=== PATIENT | female | born 1935 | race Caucasian/White ===

== ENCOUNTER 2017-11-20 18:41 | Emergency (ER) ==
[2017-11-20 19:01] VITALS: BP 123/72; TEMP 98; BMI 25.2
--- NOTE | 2017-11-20 19:45 | CT ---
EXAM: CT scan of the head without contrast HISTORY: Fall TECHNIQUE: Helical imaging of the head was performed without contrast. 5 mm thin axial images and c oronal and sagittal images were provided for interpretation. FINDINGS: The lateral ventricles and cortical sulci are normal. Low density changes are seen within the supratentorial white matter. No acute hemorrhages are seen. There is no mass effect. There ar e no extraaxial collections. The basal cisterns are patent. The paranasal sinuses and mastoid air c ells are clear. The calvarium and extracranial soft tissues are normal. IMPRESSION: No acute intracranial abnormalities are seen. Chronic small vessel ischemic changes seen within the supratentorial white matter.
--- NOTE | 2017-11-20 19:50 | CT ---
EXAM: CT scan of the cervical spine without contrast HISTORY: Fall left ear a pain TECHNIQUE: Helical imaging of the cervical spine was performed without contrast. Sagittal and coron al reconstructions and axial images were provided for interpretation. FINDINGS: The occipital condyles, some ring appear intact. The odontoid process appears normal. No acute abnormalities are seen within the spinous processes. There is a normal alignment of the facet joints. No acute fractures are seen. IMPRESSION: No acute fracture dislocation seen within the cervical spine.
--- NOTE | 2017-11-20 19:53 | CT ---
EXAM: CT maxillofacial without contrast. HISTORY: Fall. Left year trauma. PROCEDURE: Contiguous axial CT images of the face and orbits without contrast with coronal and sagit yuly reformats. FINDINGS: The bones are intact with no evidence of fracture. The temporomandibular joints are main tained. The orbits are normal in appearance. The globes are intact and symmetric. There is minimal mucosal thickening in the paranasal sinuses. Impression: No evidence of fracture. Paranasal sinusitis.
--- NOTE | 2017-11-20 20:02 | ED.PDOC ---
General ED Provider: Dr. QUIQUE MONAE-ER Chief Complaint: Fall Stated Complaint: i fell on the escalator and hit my head--denies loc Time Seen by Physician: 18:50 Mode of Arrival: Ambulance Information Source: Patient, Family, EMT Exam Limitations: No limitations Nursing and Triage Documentation Reviewed and Agree: Yes Does patient meet sepsis criteria?: No System Inflammatory Response Syndrome: Not Applicable Sepsis Protocol: For patient's 13 years and over: Temp is 96.8 and below OR 101 and greater Pulse >90 BPM Resp >20/minute Acutely Altered Mental Status Are patient's symptoms suggestive of a new infection, such as: -Pneumonia -Skin, Soft Tissue -Endocarditis -UTI -Bone, Joint Infection -Implantable Device -Acute Abdominal Infection -Wound Infection -Meningitis -Blood Stream Catheter Infection -Unknown Trauma/Injury Complaint Exam - Head Injury Complaint/Exam Location of Pain: Reports: Scalp Mechanism of Injury: Reports: Trauma Onset/Duration: one hour Symptoms Are: Still present Initial Severity: Mild Current Severity: Mild Character: Reports: Dull Aggravating: Reports: None Alleviating: Reports: None Associated Signs and Symptoms: Denies: Confusion, Memory loss, Seizure, Epistaxis, Dental malocclusion, Neck pain, Nausea, Vomiting Head Injury Findings: Present: Hemotympanum Glascow Coma Scale (see protocol): 15 Focal Weakness: Present: None Focal Sensory Loss: Present: None Gait: Unsteady Gag Reflex Present: Yes Finger to Nose: Normal Rhomberg Test Positive: No Babinski Sign: Negative Right, Negative Left Heel to Toe Normal: No Nexus Low Risk Criteria: No post-midline CS tender Differential Diagnoses: Intracranial Bleed, Sprain, Strain, Trauma Review of Systems - Review Of Systems Constitutional: Reports: No symptoms Eyes: Reports: No symptoms Ears, Nose, Mouth, Throat: Reports: No symptoms Respiratory: Reports: No symptoms Cardiac: Reports: No symptoms GI: Reports: No symptoms : Reports: No symptoms Musculoskeletal: Reports: No symptoms Skin: Reports: No symptoms Neurological: Reports: No symptoms Endocrine: Reports: No symptoms Hematologic/Lymphatic: Reports: No symptoms All Other Systems: Reviewed and Negative Past Medical History - Past Medical History Previously Healthy: Yes Endocrine: Reports: Unknown Cardiovascular: Reports: Unknown Respiratory: Reports: Unknown Hematological: Reports: Unknown Gastrointestinal: Reports: Unknown Genitourinary: Reports: Unknown Neuro/Psych: Reports: Unknown Musculoskeletal: Reports: Unknown Cancer: Reports: Unknown Last Menstrual Period: NONE - Surgical History General Surgical History: Reports: Unknown - Family History Family History: Reports: Unknown - Social History Smoking Status: Never smoker Hx Substance Use: No Alcohol Screening: None - Immunizations Tetanus Shot up to Date: Yes Physical Exam - Physical Exam Appearance: Well-appearing, No pain distress, Well-nourished Pain Distress: Mild Eyes: REYNALDO, EOMI, Conjunctiva clear ENT: Nose normal, Oropharynx normal Neck: Supple Respiratory: Airway patent Cardiovascular: RRR GI/: Soft Musculoskeletal: Normal strength, ROM intact, No edema, No calf tenderness Skin: Warm, Dry, Normal color Neurological: Sensation intact, Motor intact, Reflexes intact, Cranial nerves intact, Alert, Oriented Psychiatric: Affect appropriate (note), Mood appropriate Interpretation - Radiology Interpretation Radiology Interpretation By: Radiologist Radiology Results: Negative Exam Interpreted: CT Scan Critical Care Note - Critical Care Note Total Time (mins): 0 Course - Course Orders, Labs, Meds: Orders Category Date Time Status CT CERVICAL SPINE W/O CONTRAST Stat RADS 11/20/17 18:[address] CHEST W/O CONTRAST Stat RADS 11/20/17 20:[address] HEAD W/O CONTRAST Stat RADS 11/20/17 18:[address] LUMBAR SPINE W/O CONTRAST Stat RADS 11/20/17 20:[address] MAXILLOFACIAL W/O CONTRAST Stat RADS 11/20/17 18:[address] PELVIS W/O CONTRAST Stat RADS 11/20/17 20:[address] THORACIC SPINE W/O CONTRAST Stat RADS 11/20/17 20:14 Completed ELBOW, LEFT MIN 3 VIEWS Stat RADS 11/20/17 20:14 Completed Vital Signs: Temp Pulse Resp BP Pulse Ox 11/20/17 18:41 98 F 84 16 123/72 98 Departure - Departure Time of Disposition: 20:03 Disposition: HOME SELF-CARE Discharge Problem: Head contusion Qualifiers: Encounter type: initial encounter Contusion of head detail: scalp Qualified Code(s): S00.03XA - Contusion of scalp, initial encounter Perforation of tympanic membrane, traumatic Qualifiers: Encounter type: initial encounter Laterality: left Qualified Code(s): S09.22XA - Traumatic rupture of left ear drum, initial encounter Instructions: Ruptured Eardrum (ED) Condition: Good Pt referred to PMD for follow-up: Yes IPMP verified?: No Additional Instructions: ceftin 250mg bid x 7 days---dry ear precautions---f/u with pcp next week to recheck ear drug Allergies/Adverse Reactions: Allergies codeine Adverse Reaction (Verified 11/20/17 18:52) Home Medications: Ambulatory Orders Aspirin [Aspirin Chewable] 81 mg PO DAILY 11/20/17 Atorvastatin Calcium [Lipitor] 20 mg PO DAILY 11/20/17 Nitroglycerin [Nitrostat] 0.4 mg SL ONCE 11/20/17 Oxycodone HCl [Oxycodone] 5 mg PO PRN PRN 11/20/17 Disposition Discussed With: Patient, Family
--- NOTE | 2017-11-20 21:39 | CT ---
EXAM: CT scan of the lumbar spine without contrast HISTORY: Fall TECHNIQUE: Helical imaging of the lumbar spine was performed without contrast. Sagittal and coronal reconstructions and axial images were provided for interpretation. FINDINGS: There is no evidence of acute compression fracture. The paraspinal soft tissues are terence l. The transverse processes are intact. No acute fractures are seen within the sacrum. There is mi ld anterior subluxation of the four on L5 measuring approximately 5 mm. There is no pars defect. Th ere is curvature of the lumbar spine to the right centered at the L2-L3 level measuring approximately 17 degrees. IMPRESSION: No evidence of acute fracture dislocation seen within the lumbar spine. Degenerative grade 1 spondylolisthesis seen at L4-L5 measuring 5 mm. Dextroscoliosis of the lumbar spine.
--- NOTE | 2017-11-20 21:43 | CT ---
EXAM: CT scan of the thoracic spine without contrast HISTORY: Fall TECHNIQUE: Helical imaging of the thoracic spine was performed without contrast. Sagittal and coron al reconstructions and axial images were provided for interpretation. FINDINGS: The alignment of the thoracic spine is normal. There is no evidence of acute compression fracture. The paraspinal soft tissues are normal. The spinous processes are intact. IMPRESSION: No evidence of acute fracture seen within the thoracic spine.
--- NOTE | 2017-11-20 21:45 | DI ---
EXAM: Three-view left elbow COMPARISON: None HISTORY: Trauma and pain FINDINGS: There is no acute fracture or dislocation. Alignment is anatomic. Joint spaces are well p reserved. There is some mild degenerative change. There is no soft tissue swelling. No unexpected ra jeffrey-opaque foreign bodies. IMPRESSION: No acute osseous abnormality.
--- NOTE | 2017-11-20 21:46 | CT ---
EXAM: CT of the pelvis without contrast. HISTORY: Fall. PROCEDURE: Contiguous axial CT images of the pelvis without contrast with coronal and sagittal refor mats. FINDINGS: The bones are intact with no evidence of fracture. The joint spaces are maintained. There are degenerative changes in the spine. There is fecal stasis in the colon. The bladder is minimall y filled which limits the evaluation. The uterus is unremarkable. No free fluid or free air in the pelvis. Impression: No evidence of fracture. Fecal stasis in the colon.
--- NOTE | 2017-11-20 21:58 | CT ---
EXAM: CT chest without contrast TECHNIQUE: Helical axial CT of the chest was performed without contrast with coronal and sagittal rec onstructions. COMPARISON: Thoracic spine CT from same day HISTORY: Trauma FINDINGS: Lung parenchyma: There is no infiltrate or failure or contusion or pneumothorax. No nodule or effusi on is identified. Mediastinum: No pathologic hilar or mediastinal adenopathy. There are extremely advanced coronary jamie cifications. There is no pericardial effusion. There are moderate calcifications of the aorta. There is no aortic aneurysm. There is old granulomatous disease. Upper Abdomen: No focal or acute abnormality. Osseous structures: No rib fractures are compression fractures are identified. Surrounding soft tissues including the thyroid gland are normal. No supraclavicular or axillary adeno francisco. IMPRESSION: 1. No acute post traumatic abnormality in the chest is identified. 2. Advanced atherosclerotic changes.
[2017-11-20] MEDS ORDERED: POLYSPORIN 0.9 GM PACKET TP STA (22:33)
== END 2017-11-20 22:39 | disposition home or self-care (01) ==
LOC: ED 18:41
DX: S00.03XA Contusion of scalp, initial encounter (principal); S09.22XA Traumatic rupture of left ear drum, initial encounter; W10.0XXA Fall (on)(from) escalator, initial encounter; Y92.59 Other trade areas as the place of occurrence of the external cause; S01.83XA Puncture wound without foreign body of other part of head, initial encounter
CPT/HCPCS: 99283